=== PATIENT | female | born 1935 | race Caucasian/White ===

== ENCOUNTER 2020-02-02 11:54 | Emergency (ER) | payer MEDICARE, BC ==
[~2020-02-02] VITALS: Ht 162.6 cm; Wt 59.0 kg
[2020-02-02] MEDS ORDERED: LOSARTAN-HCTZ1 EAC3 PO (12:10)
[2020-02-02] MEDS ORDERED: ALENDRONATE SOD70 MG PO (12:10)
[2020-02-02] MEDS ORDERED: LEVO-T50 MCG PO (12:11)
[2020-02-02] MEDS ORDERED: CLONIDINE HCL0.1 M1 PO (12:11)
[2020-02-02] MEDS ORDERED: NORVASC 2.5 MG2.5 M1 PO (12:11)
[2020-02-02] MEDS ORDERED: SIMVASTATIN80 MG PO (12:12)
[2020-02-02] MEDS ORDERED: ASA81BEC PO (12:12)
[2020-02-02] MEDS ORDERED: VITAMIN D325 MC3 PO (12:13)
[2020-02-02] MEDS ORDERED: VITAMIN B-125000 MCG SUBLING (12:13)
[2020-02-02 13:59] VITALS: BP 131/58
== END 2020-02-02 14:00 | disposition home or self-care (01) ==
LOC: M.ERS 11:54
DX: M79.604 Pain in right leg (principal); M79.651 Pain in right thigh; I10 Essential (primary) hypertension; E03.9 Hypothyroidism, unspecified; M81.0 Age-related osteoporosis without current pathological fracture; Z79.899 Other long term (current) drug therapy; Z79.82 Long term (current) use of aspirin; Z86.718 Personal history of other venous thrombosis and embolism

== ENCOUNTER → 2020-05-15 | Outpatient (CLI) | payer MEDICARE, BC ==
[~2020-05-15] MED LIST: ALENDRONATE SOD70 MG PO; ASA81BEC PO; CLONIDINE HCL0.1 M1 PO; LEVO-T50 MCG PO; LOSARTAN-HCTZ1 EAC3 PO; NORVASC 2.5 MG2.5 M1 PO; SIMVASTATIN80 MG PO; VITAMIN B-125000 MCG SUBLING; VITAMIN D325 MC3 PO
== END ==
LOC: M.ULTRA 08:38
PROVIDERS: ATTEND Internal Medicine
DX: I10 Essential (primary) hypertension (principal)

== ENCOUNTER → 2020-08-08 | Outpatient (CLI) | payer MEDICARE, BC | LOC: M.MRI 06:50 | PROVIDERS: ATTEND Internal Medicine | DX: R41.3 Other amnesia (principal); J32.9 Chronic sinusitis, unspecified ==

== ENCOUNTER → 2020-11-04 | Outpatient (CLI) | payer MEDICARE, BC ==
--- NOTE | 2020-11-04 11:03 | 2DMMODE ---
[place] [address] 2 D/M-MODE ECHOCARDIOGRAM Name: FABRIZIO REY Room: [facility]#: [id number] Admission: 11/04/20 Attend Phys: Christine Velarde MD Discharge: Date of : 37 Date of Service: 11/04/20 1103 Report #: [id number] THIS REPORT FOR: cc: Christine Velarde MD, Lin W. MD Blick, David R. MD [facility] ~ APPROVED REPORT Study performed: 11/04/2020 08:53:04 EXAM: Comprehensive 2D, Doppler, and color-flow Echocardiogram Patient Location: Out-Patient BSA: 1.63 HR: 75 bpm BP: 142/78 mmHg Other Information Study Quality: Good Indications Murmur 2D Dimensions IVSd: 10.53 (7-11mm) LVOT Diam: 20.01 (18-24mm) LVDd: 44.97 mm PWd: 10.15 (7-11mm) Ascending Ao: 32.75 (22-36mm) LVDs: 19.81 (25-40mm) Aortic Root: 30.87 mm Volumes Left Atrial Volume (Systole) LA ESV Index: 18.20 mL/m2 Aortic Valve AoV Peak Rishabh.: 3.07 m/s AO Peak Gr.: 37.80 mmHg LVOT Max P.15 mmHg AO Mean Gr.: 23.08 mmHg LVOT Mean P.42 mmHg LVOT Max V: 1.24 m/s AO V2 VTI: 67.64 cm LVOT Mean V: 0.86 m/s ELIAS (VTI): 1.38 cm2 LVOT V1 VTI: 29.72 cm Mitral Valve MV Peak Gr.: 9.49 [place] [address] 2 D/M-MODE ECHOCARDIOGRAM Name: FABRIZIO REY Room: [facility]#: [id number] Admission: 11/04/20 Attend Phys: Christine Velarde MD Discharge: Date of : 37 Date of Service: 11/04/20 1103 Report #: [id number] Mean Gr.: 3.32 mmHg E/A Ratio: 0.64 MV Decel. Time: 391.60 ms MV E Max Rishabh.: 0.75 m/s MV PHT: 113.56 ms MVA (PHT): 1.94 cm2 TDI E/Lateral E': 12.50 E/Medial E': 9.38 Medial E' Rishabh.: 0.08 m/s Lateral E' Rishabh.: 0.06 m/s Pulmonary Valve PV Peak Rishabh.: 0.85 m/s PV Peak Gr.: 2.87 mmHg Tricuspid Valve RAP Estimate: 5.00 mmHg TR Peak Gr.: 17.68 mmHg RVSP: 22.68 mmHg PA Pressure: 22.68 mmHg Left Ventricle The left ventricle is normal size. There is normal LV segmental wall motion. There is normal left ventricular wall thickness. Left ventricular systolic function is normal. The left ventricular ejection fraction is within the normal range. LVEF is 60-65%. Grade I - abnormal relaxation pattern. Right Ventricle The right ventricle is normal size. The right ventricular systolic function is normal. Atria The left atrium size is normal. The right atrium size is normal. Aortic Valve Aortic valve is calcified. Mild aortic regurgitation. Moderate aortic stenosis. Mitral Valve Mild mitral annular calcification. The mitral valve is normal in structure. Mild mitral regurgitation. No evidence of mitral valve stenosis. Tricuspid Valve The tricuspid valve is normal in structure. Mild [place] [address] 2 D/M-MODE ECHOCARDIOGRAM Name: FABRIZIO REY Room: [facility]#: [id number] Admission: 11/04/20 Attend Phys: Christine Velarde MD Discharge: Date of : 37 Date of Service: 11/04/20 1103 Report #: [id number] Pulmonic Valve The pulmonary valve is normal in structure. There is no pulmonic valvular regurgitation. Great Vessels The aortic root is normal in size. IVC is normal in size and collapses >50% with inspiration. Pericardium There is no pericardial effusion. <Conclusion> LVEF is 60-65%. Moderate aortic stenosis. Mild mitral regurgitation. <ELECTRONICALLY SIGNED> By: Tahir Herndon MD, FACC 11/04/20 1103 1103 1103 Tahir Herndon MD, FACC /INF
== END ==
LOC: M.CRD 09:00
PROVIDERS: ATTEND Internal Medicine
DX: I08.3 Combined rheumatic disorders of mitral, aortic and tricuspid valves (principal); R91.1 Solitary pulmonary nodule; R55 Syncope and collapse

== ENCOUNTER 2021-02-28 12:06 | Emergency (ER) | payer MEDICARE, BC ==
[~2021-02-28] VITALS: Ht 160 cm; Wt 65.8 kg
[2021-02-28 17:40] VITALS: BP 164/76
== END 2021-02-28 17:40 | disposition left against medical advice (07) ==
LOC: M.ERS 12:06
DX: R42 Dizziness and giddiness (principal); Z53.21 Procedure and treatment not carried out due to patient leaving prior to being seen by health care provider

== ENCOUNTER 2021-05-12 07:09 | Inpatient (IN) | payer MEDICARE, BC ==
[~2021-05-12] VITALS: Ht 165.1 cm; Wt 65.8 kg
--- NOTE | ~2021-05-12 | EEG ---
[address] [address] EEG STUDY REPORT Name: FABRIZIO REY Room: [address] IN .R.#: [id number] Admission: 05/12/21 Attend Phys: Caryl Bledsoe MD Discharge: Date of : 37 Report #: [id number] THIS REPORT FOR: cc: Lb Ann MD, Meng MD Khosla,Efrain Jose MD ~ DATE OF SERVICE: 05/13/2021 This patient's EEG was done by placing the electrode by standard 10-20 system of electrode placement. Both referential and sequential montages were used for recording. Background activity in this patient's EEG is about 11 Hz and 40 microvolt. This is a symmetrical activity. Photic stimulation is unremarkable. Throughout the record, no active epileptiform activity was noticed. The patient did go to sleep that is associated with bilateral slowing and vertex sharp waves. IMPRESSION: This patient's EEG is unremarkable. Thank you very much for this referral. By: 0839 [id number] Silva MD /nt
--- NOTE | ~2021-05-12 | CON ---
[address] [address] CONSULTATION Name: FABRIZIO REY Room: [address] IN M.R.#: [id number] Admission: 05/12/21 Attend Phys: Caryl Bledsoe MD Discharge: Date of : 37 Report #: [id number] THIS REPORT FOR: cc: Lb Ann MD, Meng MD Khosla,Efrain Jose MD ~ DATE OF CONSULTATION: 05/12/2021 HISTORY OF PRESENT ILLNESS: This is an 86-year-old female patient whose memory is poor and she is a poor historian. She came to the hospital with dizziness, but then she had these headaches. She said she had these headaches before also. This is going on for 2-3 years. She could not even walk when this episode was going on according to the 's history given to other physicians. is not here. She has some nausea. Presently, she says her headache has disappeared. She does not know any aggravating or relieving factor for the headache. REVIEW OF SYSTEMS: Positive for osteoporosis, hypertension, hypothyroidism, but clinically looking at it the patient also appeared to have dementia. She is not complaining of any pain to me. She denies any eye, ENT, cardiac, respiratory, GI, , musculoskeletal, constitutional, dermatological, hematological, psychiatric, throat, allergic symptom associated with present symptomatology except as described above. PAST MEDICAL HISTORY: Positive for hypertension. FAMILY HISTORY: Negative for early age stroke. SOCIAL HISTORY: She says she does not drink alcohol. PHYSICAL EXAMINATION: The patient's examination indicates she could not tell me what month it is. She could not name the president, but she knew what hospital she was in. Her speech looks intact. Cranial nerve examination II-XII looks unremarkable. Neuromuscular examination as checked for strength, sensation, reflexes and tone was symmetrical. There was no cerebellar sign. I could not look at the patient's fundus, although her pupils are equal and reactive. She has no meningeal sign. She is moderately built individual. Her hearing and vision is adequate. There is no thyroid mass. There is no carotid bruit. Cardiac examination demonstrated loud murmur. Respiratory examination does not show any respiratory difficulty. Blood pressure is 133/74, respirations 20, pulse is 67 and temperature is 98.6. LABORATORY DATA: Indicate a normal white count at 4.3 and urinalysis does not show any signs of urinary infection. She did have a CT scan of the carotid Doppler. CT scan shows calcification of the vessels, [place] [address] CONSULTATION Name: FARBIZIO REY Stacie Room: [address] IN [facility]#: [id number] Admission: 05/12/21 Attend Phys: Caryl Bledsoe MD Discharge: Date of : 37 Report #: [id number] IMPRESSION: 1. Episode of dizziness. 2. Loud murmur in the heart and we need to see if that is in relation to the patient's dizziness. 3. Right carotid stenosis, which is an incidental finding and appeared to be asymptomatic. 4. She does appear to have a significant deficit with her memory and finding is consistent with dementia until that is going on for a long time. RECOMMENDATIONS: 1. MRI of the brain and MRA of the head to look for posterior fossa abnormality, especially the vertebral is calcified and the symptoms may be posterior fossa TIA. 2. Echocardiogram to see if she has something like aortic stenosis, which can cause symptoms of dizziness. 3. Right carotid stenosis should be treated with statin and aspirin until we find a stroke in the distribution on the MRI. We will also try to reach the patient's and get some more history. Thank you very much for this referral. We will follow up this patient after these testings are done. By: [id number] [id number] Silva MD /nt
[2021-05-12 07:21] VITALS: BP 165/77
[2021-05-12] MEDS ORDERED: CALCITRIOL0.25 MCG PO (07:40)
[2021-05-12] MEDS ORDERED: PREVAGEN (07:41)
[2021-05-12 07:44] LABS: ABSOLUTE EOSINOPHILS 0.2 thou/uL (0.0-0.7); ABSOLUTE LYMPHOCYTES 1.1 thou/uL (0.8-5.3); ABSOLUTE MONOCYTES 0.4 thou/uL (0.0-1.2); ABSOLUTE NEUTROPHILS 2.5 thou/uL (1.6-8.1); WBC 4.3 thou/uL (4.0-11.0)
[2021-05-12 07:47] LABS: ABSOLUTE BASOPHILS 0.1 thou/uL (0.0-0.2); BASOPHILS 1.2 %; HEMATOCRIT 33.2 % (37.0-47.0); HEMOGLOBIN 10.9 gm/dL (12.0-15.0); LYMPHOCYTES 26.5 %; MCH 26.9 pg (26.0-34.0); MCHC 32.7 g/dL (28.0-37.0); MCV 82.3 fL (80.0-100.0); MONOCYTES 9.9 %; MPV 7.2 fl. (7.2-11.1); NUCLEATED RBCS 0 /100WBC; PLATELET COUNT* 283 thou/uL (150-400); POLYS 57.4 %; RBC 4.03 mil/uL (4.20-5.00); RDW-CV 14.6 % (10.5-14.5)
[2021-05-12 08:00] LABS: CALCIUM 8.7 mg/dL (8.5-10.1); CREATININE 1.5 mg/dL (0.6-1.3); POTASSIUM 4.1 mmol/L (3.5-5.1)
[2021-05-12 08:11] LABS: ALBUMIN 3.8 g/dL (3.4-5.0); TOTAL BILIRUBIN 0.9 mg/dL (<0.1-1.0); TOTAL PROTEIN 7.3 g/dL (6.4-8.2)
[2021-05-12 08:26] LABS: URINE BILIRUBIN NEGATIVE (Negative); URINE BLOOD 1+ (Negative); URINE CLARITY CLEAR; URINE COLOR YELLOW; URINE GLUCOSE-RANDOM NEGATIVE (Negative); URINE KETONES NEGATIVE (Negative); URINE LEUKOCYTES-REFLEX NEGATIVE (Negative); URINE NITRITE-REFLEX NEGATIVE (Negative); URINE PROTEIN NEGATIVE (Negative); URINE SPECIFIC GRAVITY 1.015 (1.005-1.030); URINE UROBILINOGEN 0.2 E.U./dl (0.2-1.0)
[2021-05-12 08:35] LABS: BACTERIA-REFLEX 1-9 Few /HPF (None Seen); CASTS None Seen /LPF (None Seen); CRYSTALS None Seen /LPF (None Seen); MUCUS None Seen strn/LPF (None Seen); SQUAMOUS 0-3 Few /LPF (0-3); URINE RBC 0-2 Rare /HPF (0-2); URINE WBC-REFLEX None Seen /HPF (0-5)
--- NOTE | 2021-05-12 09:57 | EKG ---
[place] [address] ELECTROCARDIOGRAM REPORT Name: FABRIZIO REY Room: [place] [address] ADM [place] [facility]#: [id number] Admission: 05/12/21 Attend Phys: Caryl Bledsoe, Discharge: Date of : 37 Date of Service: 05/12/2128 Report #: [id number] THIS REPORT FOR: //name// [facility] ED Test Date: 2021-05-12 Test Time: 07:28:55 Pat Name: FABRIZIO REY Department: Room: [facility] Gender: F Recycling Worker: : 1935 Requested By: Jose Vyas Order Number: [id number] MD: Tahir Herndon Measurements Intervals Rogers Rate: 67 P: 72 IA: 167 QRS: 35 QRSD: 89 T: 63 QT: 405 QTc: 428 Interpretive Statements Sinus rhythm No previous ECG available for comparison Electronically Signed On 05-12-2021 9:56:57 [employer] by Tahir Herndon [email or web address] <ELECTRONICALLY SIGNED> By: Tahir Herndon MD, [facility] 05/12/21 0956 7 7 Tahir Herndon MD, [facility] /EPI
[2021-05-12 11:23] VITALS: BP 164/83
[2021-05-12 11:40] VITALS: BP 200/84
[2021-05-12 15:47] VITALS: BP 133/74
--- NOTE | 2021-05-12 16:45 | 2DMMODE ---
[place] [address] 2 D/M-MODE ECHOCARDIOGRAM Name: FABRIZIO REY Room: [address] IN [facility]#: [id number] Admission: 05/12/21 Attend Phys: Caryl Bledsoe, Discharge: Date of : 37 Date of Service: 05/12/21 1645 Report #: [id number] THIS REPORT FOR: cc: Lb Ann MD, Meng MD Blick, David R. MD [facility] ~ APPROVED REPORT Study performed: 05/12/2021 15:38:15 EXAM: Limited 2D, Doppler, and color-flow Echocardiogram Patient Location: In-Patient Room [facility] Status: routine BSA: 1.73 HR: 67 bpm BP: 182/82 mmHg Rhythm: NSR Other Information Study Quality: Good Indications Aortic Valve Disease Elevated Troponin 2D Dimensions IVSd: 11.32 (7-11mm) LVOT Diam: 18.16 (18-24mm) LVDd: 39.94 mm PWd: 9.47 (7-11mm) LVDs: 20.99 (25-40mm) Aortic Root: 29.65 mm Aortic Valve AoV Peak Rishabh.: 2.87 m/s AO Peak Gr.: 32.86 mmHg LVOT Max P.65 mmHg AO Mean Gr.: 20.09 mmHg LVOT Mean P.22 mmHg LVOT Max V: 1.08 m/s AO V2 VTI: 66.18 cm LVOT Mean V: 0.68 m/s ELIAS (VTI): 0.94 cm2 LVOT V1 VTI: 23.96 cm Tricuspid Valve RAP Estimate: 5.00 mmHg TR Peak Gr.: 27.36 mmHg RVSP: 32.00 mmHg PA Pressure: 32.00 [place] [address] 2 D/M-MODE ECHOCARDIOGRAM Name: FABRIZIO REY Room: [address] IN [facility]#: [id number] Admission: 05/12/21 Attend Phys: Caryl Bledsoe, Discharge: Date of : 37 Date of Service: 05/12/21 1645 Report #: [id number] Left Ventricle The left ventricle is normal size. There is normal LV segmental wall motion. There is normal left ventricular wall thickness. The left ventricular systolic function is normal. The left ventricular ejection fraction is within the normal range. LVEF is 60-65%. Right Ventricle The right ventricle is normal size. The right ventricular systolic function is normal. Atria The left atrium size is normal. The right atrium size is normal. Aortic Valve Aortic valve is calcified. Mild aortic regurgitation. Moderate aortic stenosis. Mitral Valve Moderate mitral annular calcification. The mitral valve is normal in structure. trace mitral regurgitation. No evidence of mitral valve stenosis. Tricuspid Valve The tricuspid valve is normal in structure. Mild tricuspid regurgitation. estimated pa pressure 35 mm Hg Pulmonic Valve The pulmonary valve is normal in structure. There is no pulmonic valvular regurgitation. Great Vessels The aortic root is normal in size. IVC is normal in size and collapses >50% with inspiration. Pericardium There is no pericardial effusion. <Conclusion> LVEF is 60-65%. [place] [address] 2 D/M-MODE ECHOCARDIOGRAM Name: FABRIZIO REY Room: [address] IN M.R.#: [id number] Admission: 05/12/21 Attend Phys: Caryl Bledsoe, Discharge: Date of : 37 Date of Service: 05/12/211644 Report #: [id number] Moderate aortic stenosis. Mild aortic regurgitation. <ELECTRONICALLY SIGNED> By: Tahir Herndon MD, FACC 05/12/211644 44 44 Tahir Herndon MD, FACC /INF
[2021-05-12 21:30] VITALS: BP 133/70
[2021-05-13] VITALS: BP 140/70
[2021-05-13 04:00] VITALS: BP 158/86
[2021-05-13 05:25] LABS: HEMATOCRIT 33.9 % (37.0-47.0); HEMOGLOBIN 11.2 gm/dL (12.0-15.0); MCV 81.7 fL (80.0-100.0); MPV 7.8 fl. (7.2-11.1); RBC 4.15 mil/uL (4.20-5.00); RDW-CV 14.8 % (10.5-14.5); WBC 6.5 thou/uL (4.0-11.0)
[2021-05-13 06:15] LABS: ALBUMIN 4.1 g/dL (3.4-5.0); ALKALINE PHOSPHATASE 57 U/L (46-116); ANION GAP 11 mmol/L (7-16); BUN 31 mg/dL (7-18); CALCIUM 9.5 mg/dL (8.5-10.1); CHLORIDE 100 mmol/L (98-107); CHOLESTEROL 186 mg/dL (<200); CO2 25 mmol/L (21-32); CREATININE 1.6 mg/dL (0.6-1.3); GLUCOSE 111 mg/dL (70-99); HDL CHOLESTEROL 81 mg/dL (>40); LDL CHOLESTEROL 85 mg/dL (<100); MAGNESIUM 1.9 mg/dL (1.8-2.4); POTASSIUM 4.1 mmol/L (3.5-5.1); SGOT 22 U/L (15-37); SGPT 21 U/L (30-65); SODIUM 136 mmol/L (136-145); TC:HDL 2.3 Ratio (Not establshd); TOTAL PROTEIN 7.7 g/dL (6.4-8.2); TRIGLYCERIDE 104 mg/dL (<150); VLDL 21 mg/dL (<40)
[2021-05-13 06:31] LABS: SERUM ASSESSMENT Clear
[2021-05-13 06:39] LABS: % SATURATION 9 % (20-39); IRON 44 ug/dL (50-175)
[2021-05-13 10:00] VITALS: BP 122/57
[2021-05-13 12:39] VITALS: BP 138/76
--- NOTE | 2021-05-13 14:18 | CON ---
[address] [address] CONSULTATION Name: FABRIZIO REY Room: [address] IN .R.#: [id number] Admission: 05/12/21 Attend Phys: Caryl Bledsoe MD Discharge: Date of : 37 Report #: [id number] THIS REPORT FOR: cc: Lb Ann MD, Meng MD Blick, David R. MD [facility] ~ DATE OF CONSULTATION: 05/12/2021 CARDIOLOGY CONSULTATION HISTORY OF PRESENT ILLNESS: The patient is an 86-year-old white female who I was asked to see in the hospital today after she is noted to have a heart murmur. The patient denies a previous history of heart disease, although she states she has had a heart murmur in the past. She is not very active at this time. She has never been here to [place]. The patient was brought to the emergency room this morning by family members after she notes that when she awakened this morning, she felt lightheaded. She had some short-term memory loss. She had help needed in and out of bed and walk to the bathroom. She complains of nausea. She felt her head felt unusual. She was admitted for further evaluation and treatment. She denies any chest pain, shortness of breath, palpitations, syncope, peripheral edema. PAST MEDICAL HISTORY: She has had previous stripping of varicose veins in her left leg. She has had tonsillectomy. She denied a history of hypertension, diabetes, hyperlipidemia, although she is on blood pressure medications. MEDICATIONS: Include Cozaar, clonidine, amlodipine, simvastatin, aspirin. ALLERGIES: She had no known drug allergies. FAMILY HISTORY: Negative for heart disease. SOCIAL HISTORY: She is . She and her live in [place]. No smoking. Rarely drinks alcohol. REVIEW OF SYSTEMS: No history of a stroke. She has used inhaler in the past. No history of liver disease, kidney disease, cancer, psychiatric illness, chronic skin condition. PHYSICAL EXAMINATION: GENERAL: Revealed an elderly female lying in bed. She appeared in no acute distress. VITAL SIGNS: She had a blood pressure of 160/80, pulse 70. She is afebrile. HEENT: She was anicteric. Conjunctivae pink. Mucosa moist. NECK: Neck veins do not appear distended. [place] [address] CONSULTATION Name: FABRIZIO REY Room: [address]#: [id number] Admission: 05/12/21 Attend Phys: Caryl Bledsoe MD Discharge: Date of : 37 Report #: [id number] the carotid arteries. Neck was supple. CHEST: Clear to auscultation. HEART: Regular rate and rhythm. Grade 4 systolic ejection murmur at left sternal border. ABDOMEN: Soft. EXTREMITIES: Had no edema. Dorsalis pedis pulses 2+ bilaterally. SKIN: Cool and dry. NEUROLOGIC: Nonfocal. DIAGNOSTIC STUDIES: ECG on admission showed sinus rhythm, no significant ST or T-wave changes were noted. Her workup, she actually had an echocardiogram done as an outpatient last October here at [place] that showed ejection fraction of 60%, mild mitral regurgitation. There is at least moderate aortic stenosis with a peak aortic valve gradient of 37 mmHg. Her workup in the Emergency Room, she had a CT scan of the head without contrast that showed no acute abnormality. Calcifications were noted of the arteries. Her portable chest x-ray showed normal heart size, clear lung orozco. She had carotid Doppler study performed today that showed 50-69% stenosis, right internal carotid artery. LABORATORY WORK: BUN 33, creatinine 1.5. High sensitivity troponin was minimally elevated at 68. BNP 695. TSH 4.6. Hemoglobin 10.9. She had a COVID antigen stat test that was negative. Urinalysis was negative for protein. IMPRESSION AND RECOMMENDATIONS: 1. Confusion, reason unclear. 2. Moderate aortic stenosis. No indication for valve replacement at this time, the patient does not require SBE prophylaxis. 3. Moderate carotid stenosis. Asymptomatic. 4. Hypertension. The patient is on an ARB, calcium ayo, diuretic and clonidine. 5. Hyperlipidemia. The patient is on a statin drug. <ELECTRONICALLY SIGNED> By: Tahir Herndon MD, FACC 05/13/21 1418 1335 1830Tahir Herndon MD, FAC /nt
[2021-05-13 16:42] VITALS: BP 136/72
[2021-05-13 20:00] VITALS: BP 116/51
[2021-05-14 02:29] VITALS: BP 129/56
[2021-05-14 05:58] VITALS: BP 128/56
[2021-05-14] MEDS ORDERED: ATORVASTATIN CA80 MG PO (08:07)
[2021-05-14] MEDS ORDERED: ARICEPT 5 MG TAB5 MG PO (08:07)
[2021-05-14 08:37] LABS: CALCIUM 8.7 mg/dL (8.5-10.1); CREATININE 1.8 mg/dL (0.6-1.3); POTASSIUM 4.4 mmol/L (3.5-5.1)
[2021-05-14 08:46] VITALS: BP 119/54
[2021-05-14 10:37] VITALS: BP 119/54
== END 2021-05-14 12:07 | disposition home or self-care (01) | DRG 641 ==
LOC: M.ERS 07:09 → M.TBA-ER 08:59 → M.2W 08:59
PROVIDERS: Family Medicine; Internal Medicine Cardiovascular Disease; ADMIT Internal Medicine; ATTEND Internal Medicine
DX: E86.0 Dehydration (principal); I50.30 Unspecified diastolic (congestive) heart failure; G93.49 Other encephalopathy; I12.9 Hypertensive chronic kidney disease with stage 1 through stage 4 chronic kidney disease, or unspecified chronic kidney disease; N18.30 Chronic kidney disease, stage 3 unspecified; I51.89 Other ill-defined heart diseases; Z20.822 Contact with and (suspected) exposure to COVID-19; M81.0 Age-related osteoporosis without current pathological fracture; E03.9 Hypothyroidism, unspecified; I65.21 Occlusion and stenosis of right carotid artery; E78.5 Hyperlipidemia, unspecified; I35.0 Nonrheumatic aortic (valve) stenosis; D50.9 Iron deficiency anemia, unspecified; Z86.718 Personal history of other venous thrombosis and embolism; F03.90 Unspecified dementia, unspecified severity, without behavioral disturbance, psychotic disturbance, mood disturbance, and anxiety